=== PATIENT | female | born 1965 | race Asian ===

== ENCOUNTER 2017-05-28 10:14 | Emergency (ER) | payer MEDICAID ==
[~2017-05-28] VITALS: Ht 157.5 cm; Wt 64.0 kg
[2017-05-28 10:21] VITALS: BP 114/63
== END 2017-05-28 16:23 | disposition home or self-care (01) ==
LOC: ER 10:17
DX: J02.9 Acute pharyngitis, unspecified (principal)
CPT/HCPCS: 70490

== ENCOUNTER 2019-07-21 10:06 | Emergency (ER) | payer MEDICAID ==
[~2019-07-21] VITALS: Ht 157.5 cm; Wt 63.5 kg
[2019-07-21 10:44] LABS: Basophils # (auto) 0.1 uL; Eosinophils # (auto) 0.1 uL; Eosinophils % (auto) 1.6 % (0.0-7.0); Hemoglobin 12.7 g/dL (12.2-16.2); Lymphocytes # (auto) 1.9 uL; Mean Corpuscular Hemoglobin 29.8 pg (28.0-32.0); Mean Corpuscular Hgb Conc. 33.4 g/dL (32.0-36.0); Mean Corpuscular Volume 89.2 fL (80.0-100.0); Monocytes # (auto) 0.5 uL; Monocytes % (auto) 6.8 % (0.0-12.0); Neutrophils # (auto) 4.3 uL; Neutrophils % (auto) 62.6 % (37.0-80.0); Platelet Count (auto) 216 10^3/uL (140-450); Red Blood Cells 4.26 10^6/uL (4.0-5.20); Red Cell Distribution Width 13.5 % (11.8-14.3); White Blood Cell 6.8 10^3/uL (4.4-10.8)
[2019-07-21 11:01] LABS: Albumin 3.8 g/dL (3.4-5.0); Anion Gap 7 (5-15); Blood Urea Nitrogen 16 mg/dL (7-18); Carbon Dioxide 27 mmol/L (21-32); Chloride 105 mmol/L (98-107); Glucose 263 mg/dL (74-106); Potassium 4.2 mmol/L (3.5-5.1); Sodium 139 mmol/L (136-145)
[2019-07-21 11:03] LABS: INR 0.93 (0.9-1.15); Partial Thromboplastin Time 26.8 sec (23.64-32.05)
[2019-07-21 11:07] LABS: Alanine Aminotransferase 36 U/L (13-56); Alkaline Phosphatase 95 U/L (45-117); Aspartate Aminotransferase 18 U/L (15-37); BUN/Creatinine Ratio 17.8; Bilirubin, Total 0.7 mg/dL (0.2-1.0); GFR African American 85 mL/min; GFR Non-African American 70 mL/min
[2019-07-21 11:21] LABS: Urine Bacteria FEW /hpf (None Seen); Urine Blood Negative /uL (Negative); Urine Mucus FEW (None Seen); Urine Specific Gravity 1.017 (1.001-1.035); Urine WBC 335 /hpf (0 - 5); Urine WBC Clumps PRESENT /hpf (None Seen)
[2019-07-21 14:21] VITALS: BP 112/64
== END 2019-07-21 14:13 | disposition home or self-care (01) ==
LOC: ER 10:06
DX: N39.0 Urinary tract infection, site not specified (principal); E11.9 Type 2 diabetes mellitus without complications
CPT/HCPCS: 36415; 74176; 80053; 81001; 84484; 85025; 85610; 85730; 93005; 94761

== ENCOUNTER 2021-11-21 11:37 | Emergency (ER) | payer MEDICAID ==
[~2021-11-21] VITALS: Ht 157.5 cm; Wt 61.2 kg
[2021-11-21 12:02] VITALS: BP 112/66
[2021-11-21] MEDS ORDERED: IBUP800T27 PO (12:27)
[2021-11-21] MEDS ORDERED: METH750T22 PO (12:27)
== END 2021-11-21 12:37 | disposition home or self-care (01) ==
LOC: ER 11:37
DX: M51.37 Other intervertebral disc degeneration, lumbosacral region (principal); N20.0 Calculus of kidney; E78.5 Hyperlipidemia, unspecified; E11.9 Type 2 diabetes mellitus without complications
CPT/HCPCS: 72100